=== PATIENT | male | born 1960 | race Two or more races ===

== ENCOUNTER 2017-03-02 16:14 | Emergency (ER) | payer BC ==
[2017-03-02] MEDS ORDERED: Sodium Chloride 0.9% 10 ML Syringe FLUSH PRN ×2 (16:50→18:01)
[2017-03-02] MEDS ORDERED: Ondansetron 4 MG/2 ML SDV IVPUSH ONE (16:51)
[2017-03-02] MEDS ORDERED: Sodium Chloride 0.9% 1,000 ML IV ONE (16:51)
[2017-03-02] MEDS ORDERED: HYDROmorphone 0.5 MG/0.5 ML Syringe IM ONE (16:53)
[2017-03-02] MEDS ORDERED: HYDROmorphone 0.5 MG/0.5 ML Syringe IVPUSH ONE (16:54)
--- NOTE | 2017-03-02 16:59 | EDM.PDOC ---
ED HPI GENERAL MEDICAL PROBLEM - General Chief Complaint: Abdominal Pain Stated Complaint: LOWER ABDOMINAL PAIN Time Seen by Provider: 03/02/17 16:41 Source of Information: Reports: Patient History Limitations: Reports: No Limitations - History of Present Illness INITIAL COMMENTS - FREE TEXT/NARRATIVE: Patient is a 57-year-old male who presents to the ED complaining of lower abdominal pain. Patient states symptoms came on yesterday abruptly with nausea/ vomiting. He had no diarrhea or dysuria. He was quite distended and tender to touch. Pain is described as a crampy discomfort that waxed and waned but was constant. He has a history of total colectomy for unclear reasons. States he has been drinking tequila quite heavily this weekend. He drink one bottle 750 mls over the weekend. Typically over the weekend he drinks approximately one to one and a half bottles of 750 mL of tequila every weekend. He admits to being a alcoholic. Denies any acid reflux. Denies any history of GI bleed. Pain is localized with no radiation. Denies any fever although he did feel sweaty last night with some intermittent chills. There's been no shortness of breath, cough , chest pain, rash, recent sick exposures, ingestion of bad or questional food, or any additional complaints. Patient has no additional past medical history and currently taking no medications. Patient smokes one pack of cigarettes a day. Denies any recreational drug use. He has no PCP. Lower Abdominal Pain Score (Numeric/FACES): 2 - Related Data Allergies Allergy/AdvReac Type Severity Reaction Status Date / Time No Known Allergies Allergy Verified 10/26/13 18:00 Home Meds: Home Meds Ondansetron [Zofran ODT] 4 mg PO Q6H PRN #12 tab.dis 03/02/17 [Rx] Past Medical History Psychiatric History: Reports: Addiction Other Psychiatric History: alcohol - Past Surgical History GI Surgical History: Reports: Other (See Below) Other GI Surgeries/Procedures: colonectomy and had a colonostomy, but no longer. Social & Family History - Family History Family Medical History: Noncontributory - Tobacco Use Smoking Status *Q: Current Every Day Smoker Years of Tobacco use: 40 Packs/Tins Daily: 1 - Alcohol Use Days Per Week of Alcohol Use: 2 Number of Drinks Per Day: 4 Total Drinks Per Week: 8 - Recreational Drug Use Recreational Drug Use: No ED ROS GENERAL - Review of Systems Review Of Systems: See Below Constitutional: Reports: Chills, Decreased Appetite Respiratory: Denies: Shortness of Breath, Cough, Sputum Cardiovascular: Reports: No Symptoms GI/Abdominal: Reports: Abdominal Pain, Diarrhea, Decreased Appetite, Distension , Nausea, Vomiting. Denies: Black Stool, Bloody Stool, Constipation, Flatus, Hematemesis, Hematochezia, Melena : Reports: No Symptoms Musculoskeletal: Reports: No Symptoms Neurological: Reports: Headache. Denies: Dizziness, Numbness, Tingling, Difficulty Walking ED EXAM, GI/ABD - Physical Exam Exam: See Below Exam Limited By: No Limitations General Appearance: Alert, WD/WN, No Apparent Distress Ears: Hearing Grossly Normal Nose: Normal Inspection Throat/Mouth: Normal Inspection, Normal Oropharynx, Normal Voice, No Airway Compromise Neck: Normal Inspection, Supple Respiratory/Chest: No Respiratory Distress, Lungs Clear, No Accessory Muscle Use , Chest Non-Tender Cardiovascular: Normal Peripheral Pulses, Regular Rate, Rhythm GI/Abdominal Exam: Soft, No Organomegaly, Distended, Tender (Throughout the lower abdomen.), Abnormal Bowel Sounds (Hyperactive), Other (Large surgical incision midline from total colectomy.) Back Exam: Normal Inspection. No: CVA Tenderness (L), CVA Tenderness (R) Neurological: Alert, Oriented, CN II-XII Intact, Normal Cognition, No Motor/ Sensory Deficits Psychiatric: Normal Affect, Normal Mood Course - Vital Signs Last Recorded V/S: Last Vital Signs Temp 97.2 F 03/02/17 16:41 Pulse 66 03/02/17 16:41 Resp 16 03/02/17 16:41 BP 183/99 H 03/02/17 16:41 Pulse Ox 100 03/02/17 16:41 - Orders/Labs/Meds Orders: Active Orders 24 hr Category Date Time Status Peripheral IV Care [RC] . DIRECTED Care 03/02/17 16:50 Active Abdomen 2V AP Flat Upright [CR] Stat Exams 03/02/17 16:50 Taken Peripheral IV Insertion Adult [OM.PC] Stat Oth 03/02/17 16:50 Ordered Labs: Laboratory Tests 03/02/17 03/02/17 03/02/17 Range/Units 16:40 16:40 16:40 WBC 8.92 (4.23-9.07) K/mm3 RBC 5.54 (4.63-6.08) M/mm3 Hgb 15.3 (13.7-17.5) gm/L Hct 46.4 (40.1-51.0) % MCV 83.8 (79.0-92.2) fl MCH 27.6 (25.7-32.2) pg MCHC 33.0 (32.2-35.5) g/dl RDW Std Deviation 40.5 (35.1-43.9) fL Plt Count 230 (163-337) K/mm3 MPV 11.0 (9.4-12.3) fl Neut % (Auto) 55.4 (34.0-67.9) % Lymph % (Auto) 35.9 (21.8-53.1) % [place] % (Auto) 7.0 (5.3-12.2) % Eos % (Auto) 1.3 (0.8-7.0) Baso % (Auto) 0.3 (0.1-1.2) % Neut # (Auto) 4.94 (1.78-5.38) K/mm3 Lymph # (Auto) 3.20 (1.32-3.57) K/mm3 [place] # (Auto) 0.62 (0.30-0.82) K/mm3 Eos # (Auto) 0.12 (0.04-0.54) K/mm3 Baso # (Auto) 0.03 (0.01-0.08) K/mm3 Sodium 141 (136-145) mEq/L Potassium 3.7 (3.5-5.1) mEq/L Chloride 104 (98-107) mEq/L Carbon Dioxide 27 (21-32) mEq/L Anion Gap 13.7 (5-15) BUN 10 (7-18) mg/dL Creatinine 0.9 (0.7-1.3) mg/dL Est Cr Clr Drug Dosing 86.71 mL/min Estimated GFR (MDRD) > 60 (>60) mL/min BUN/Creatinine Ratio 11.1 L (14-18) Glucose 140 H (74-106) mg/dL Calcium 9.0 (8.5-10.1) mg/dL Magnesium 1.9 (1.8-2.4) mg/dl Total Bilirubin 0.5 (0.2-1.0) mg/dL AST 23 (15-37) U/L ALT 40 (16-63) U/L Alkaline Phosphatase 97 (46-116) U/L C-Reactive Protein < 0.2 (<1.0) mg/dL Total Protein 7.1 (6.4-8.2) g/dl Albumin 3.5 (3.4-5.0) g/dl Globulin 3.6 gm/dL Albumin/Globulin Ratio 1.0 (1-2) Lipase 101 (73-393) U/L TSH 3rd Generation 3.223 (0.358-3.74) uIU/mL Urine Color (Yellow) Urine Appearance (Clear) Urine pH (5.0-8.0) Ur Specific [place] (1.005-1.030) Urine Protein (Negative) Urine Glucose (UA) (Negative) Urine Ketones (Negative) Urine Occult Blood (Negative) Urine Nitrite (Negative) Urine Bilirubin (Negative) Urine Urobilinogen (0.2-1.0) Ur Leukocyte Esterase (Negative) Urine RBC (0-5) /hpf Urine WBC (0-5) /hpf Ur Epithelial Cells (0-5) /hpf Urine Bacteria (FEW) /hpf Urine Mucus (FEW) /hpf Ethyl Alcohol 0.00 (0.00) gm% 03/02/17 Range/Units 20:00 WBC (4.23-9.07) K/mm3 RBC (4.63-6.08) M/mm3 Hgb (13.7-17.5) gm/L Hct (40.1-51.0) % MCV (79.0-92.2) fl MCH (25.7-32.2) pg MCHC (32.2-35.5) g/dl RDW Std Deviation (35.1-43.9) fL Plt Count (163-337) K/mm3 MPV (9.4-12.3) fl Neut % (Auto) (34.0-67.9) % Lymph % (Auto) (21.8-53.1) % [place] % (Auto) (5.3-12.2) % Eos % (Auto) (0.8-7.0) Baso % (Auto) (0.1-1.2) % Neut # (Auto) (1.78-5.38) K/mm3 Lymph # (Auto) (1.32-3.57) K/mm3 [place] # (Auto) (0.30-0.82) K/mm3 Eos # (Auto) (0.04-0.54) K/mm3 Baso # (Auto) (0.01-0.08) K/mm3 Sodium (136-145) mEq/L Potassium (3.5-5.1) mEq/L Chloride (98-107) mEq/L Carbon Dioxide (21-32) mEq/L Anion Gap (5-15) BUN (7-18) mg/dL Creatinine (0.7-1.3) mg/dL Est Cr Clr Drug Dosing mL/min Estimated GFR (MDRD) (>60) mL/min BUN/Creatinine Ratio (14-18) Glucose (74-106) mg/dL Calcium (8.5-10.1) mg/dL Magnesium (1.8-2.4) mg/dl Total Bilirubin (0.2-1.0) mg/dL AST (15-37) U/L ALT (16-63) U/L Alkaline Phosphatase (46-116) U/L C-Reactive Protein (<1.0) mg/dL Total Protein (6.4-8.2) g/dl Albumin (3.4-5.0) g/dl Globulin gm/dL Albumin/Globulin Ratio (1-2) Lipase (73-393) U/L TSH 3rd Generation (0.358-3.74) uIU/mL Urine Color Yellow (Yellow) Urine Appearance Clear (Clear) Urine pH 6.0 (5.0-8.0) Ur Specific [place] 1.010 (1.005-1.030) Urine Protein Negative (Negative) Urine Glucose (UA) Negative (Negative) Urine Ketones Negative (Negative) Urine Occult Blood Trace-intact H (Negative) Urine Nitrite Negative (Negative) Urine Bilirubin Negative (Negative) Urine Urobilinogen 0.2 (0.2-1.0) Ur Leukocyte Esterase Negative (Negative) Urine RBC 0-5 (0-5) /hpf Urine WBC 0-5 (0-5) /hpf Ur Epithelial Cells 0-5 (0-5) /hpf Urine Bacteria Not seen (FEW) /hpf Urine Mucus Not seen (FEW) /hpf Ethyl Alcohol (0.00) gm% Meds: Medications Discontinued Medications Generic Name Dose Route Start Last Admin Trade Name Freq PRN Reason Stop Dose Admin Diatrizoate Meglum/Diatrizoate Sod 120 ml 03/02/17 18:01 03/02/17 18:52 Gastrografin 37% PO 03/02/17 18:02 90 ml ONETIME ONE Administration Hydromorphone HCl 0.5 mg 03/02/17 16:53 Dilaudid IM 03/02/17 16:54 ONETIME ONE Hydromorphone HCl 0.5 mg 03/02/17 16:54 03/02/17 17:13 Dilaudid IVPUSH 03/02/17 16:55 0.5 mg ONETIME ONE Administration Sodium Chloride 1,000 mls @ 250 mls/hr 03/02/17 16:51 03/02/17 17:12 Normal Saline IV 03/02/17 20:50 250 mls/hr ONETIME ONE Administration Iopamidol 150 ml 03/02/17 18:01 03/02/17 18:52 Isovue-300 (61%) IVPUSH 03/02/17 18:02 125 ml ONETIME ONE Administration Ondansetron HCl 4 mg 03/02/17 16:51 03/02/17 17:12 Zofran IVPUSH 03/02/17 16:52 4 mg ONETIME ONE Administration Sodium Chloride 10 ml 03/02/17 16:50 03/02/17 17:13 Saline Flush FLUSH 10 ml ASDIRECTED PRN Administration Keep Vein Open Sodium Chloride 10 ml 03/02/17 18:01 03/02/17 18:52 Saline Flush FLUSH 10 ml ONETIME PRN Administration IV FLUSH - Re-Assessments/Exams Free Text/Narrative Re-Assessment/Exam: IV established with normal saline 250 mL per hour, Zofran 4 mg IVP, and Dilaudid 0.5 mg IVP. Initial labs and studies include CBC, chem 14, lipase, magnesium, UA , TSH, Serum ETOH, bladder scan, and 2 view of the abdomen flat and upright. 03/02/17 17:43 bladder scan revealed 48 mls present. X-ray of the abdomen reveals a few air-fluid levels with dilatation of the small bowel within the right lower quadrant. Patient is quite sensitive to his abdomen with palpation. Findings are concerning for possible small bowel obstruction. Ordered CT with oral and IV contrast. 03/02/17 19:44 Labs reveal: CBC and chemistry panel were essentially normal. CRP less than 0.2. TSH 3.223. Lipase 11. CT the abdomen and pelvis impression: Previous colonic surgery. Other incidental findings. Nothing acute is appreciated on CT study of the abdomen and pelvis. 03/02/172004 Reassessment, patient is feeling better after the above therapies. He is ready to go home. Will discharge home with instructions as documented. UA is pending. Will call with results if any concerning findings. He had no pain with urination. Departure - Departure Time of Disposition: 20:15 Disposition: Home, Self-Care 01 Condition: Good Clinical Impression: Abdominal pain Qualifiers: Abdominal location: lower abdomen, unspecified Qualified Code(s): R10.30 - Lower abdominal pain, unspecified Vomiting Qualifiers: Vomiting type: unspecified Vomiting Intractability: non-intractable Nausea presence: with nausea Qualified Code(s): R11.2 - Nausea with vomiting, unspecified - Discharge Information Prescriptions: Ondansetron [Zofran ODT] 4 mg PO Q6H PRN #12 tab.dis PRN Reason: Nausea/Vomiting Instructions: Viral Gastroenteritis, Adult, [id number], Abdominal Pain, Adult , [id number] Referrals: Rocio Hardy [Physician] - [facility] [Outside] Asael Kidd LAC [Licensed Counselor] - Forms: ED Department Discharge, ED Return to Work/School Form Additional Instructions: As discussed labs and CT study of the abdomen did not reveal any concerning findings. Etiology of nausea/vomiting and abdominal pain most likely viral which will run its course over the next few days. Treatment at this point will be symptomatic care including Zofran 4 mg every 6 hours as needed for nausea and vomiting. Stick with a liquid diet for the next 24 hours. Thereafter advance to a bland diet if not vomiting. After additional 24 hours may advance to normal diet if tolerated. Push the fluids. Refrain from consuming any alcohol. Suggest follow-up with a primary care provider at [facility] to establish medical care within the next week. See a alcohol treatment counselor at [facility] and/or speak with Asael Kidd for further treatment. Return to the ED if he developed any new or worsening symptoms. - My Orders Last 24 Hours: My Active Orders 03/02/17 16:50 Peripheral IV Care [RC] . DIRECTED Abdomen 2V AP Flat Upright [CR] Stat Peripheral IV Insertion Adult [OM.PC] Stat - Assessment/Plan Last 24 Hours: My Active Orders 03/02/17 16:50 Peripheral IV Care [RC] . DIRECTED Abdomen 2V AP Flat Upright [CR] Stat Peripheral IV Insertion Adult [OM.PC] Stat
[2017-03-02] MEDS ORDERED: Diatrizoate Meglumine/Diatrizoate Sodium 37% 120 ML Bottle PO ONE (18:01)
[2017-03-02] MEDS ORDERED: Iopamidol 612 MG/ML 150 ML Bottle IVPUSH ONE (18:01)
--- NOTE | 2017-03-02 19:18 | CT ---
CT abdomen and pelvis Technique: Multiple axial sections were obtained from above the dome of the diaphragm inferiorly through the pubic symphysis. Intravenous and oral contrast was utilized. Delayed images were also obtained through the bladder. Comparison: Previous abdominal x-ray performed earlier on the same day (4:53 PM). Findings: Visualized lung bases shows nothing acute. Liver shows no focal abnormality but may have mild fatty infiltration. Spleen appears within normal limits. Adrenal glands show no nodule. Kidneys show contrast enhancement. Low density abnormality is noted within the mid right kidney measuring approximately 1.7 cm most likely due to renal cyst. Kidneys otherwise appear unremarkable. Pancreas appears within normal limits. Aorta shows no aneurysmal dilatation. No retroperitoneal adenopathy or mesenteric abnormalities are seen. Previous colonic surgery is identified. Most of the colon appears to have been removed. No pelvic mass or adenopathy is seen. No free fluid or inflammatory change is seen. No bowel dilatation is seen. Delayed images shows contrast within the distal ureters and within the bladder Bone window settings were reviewed which shows mild scattered degenerative change. Impression: 1. Previous colonic surgery. Other incidental findings. Nothing acute is appreciated on CT study of the abdomen and pelvis. Diagnostic code #2
--- NOTE | 2017-03-03 07:21 | CR ---
Abdomen: Supine and upright views of the abdomen were obtained. Comparison: No prior study. Scattered gas within small bowel is seen which appears within normal limits. Findings do not appear obstructive. Slight joint space narrowing is seen within the left hip. Minimal degenerative spurring is scattered within the spine. No free air is identified. No abnormal calcifications or soft tissue abnormality is seen. Impression: 1. Incidental findings. Diagnostic code #2
== END 2017-03-02 20:38 | disposition home or self-care (01) ==
LOC: JD.ED 16:14
DX: R10.30 Lower abdominal pain, unspecified (principal); R11.2 Nausea with vomiting, unspecified; F17.210 Nicotine dependence, cigarettes, uncomplicated
CPT/HCPCS: 36415; 51798; 74020; 74177; 80053; 81001; 83690; 83735; 84443; 85025; 86140; 96361; 96374; 96375; 99285; G0480; J1170; J2405; J7040; J7050; Q9963; Q9967; 99284